=== PATIENT | male | born 1960 | race African-American/Black ===

== ENCOUNTER 2018-12-10 17:39 | Emergency (ER) | payer OTHER, MEDICAID ==
[~2018-12-10] VITALS: Ht 180.3 cm; Wt 90.0 kg
[2018-12-10] MEDS ORDERED: VALPROIC ACID 250MG CAPSULE PO ONE (18:30)
[2018-12-10] MEDS ORDERED: PHENYTOIN SODIUM EXTENDED 100MG CAPSULE PO ONE (18:30)
[2018-12-10 22:28] VITALS: BP 127/62
== END 2018-12-10 22:30 | disposition home or self-care (01) ==
LOC: ER 17:39
DX: G40.909 Epilepsy, unspecified, not intractable, without status epilepticus (principal); I10 Essential (primary) hypertension
CPT/HCPCS: 36415; 80165; 80185; 99283

== ENCOUNTER 2019-01-24 21:07 | Emergency (ER) | payer OTHER, MEDICAID ==
[~2019-01-24] VITALS: Ht 182.9 cm; Wt 98.0 kg
[2019-01-24] MEDS ORDERED: SODIUM CHLORIDE 0.9% 1,000 ML IV ONE (21:30)
[2019-01-24] MEDS ORDERED: LEVETIRACETAM 500MG PREMIX 100 ML IV ONE (21:30)
[2019-01-24 22:13] LABS: BASOPHILS % 1.3 % (0.0-2.0); EOSINOPHILS % 3.1 % (0.0-5.0); HEMATOCRIT. 43.5 % (42.0-52.0); HEMOGLOBIN. 14.7 g/dL (14.0-18.0); LYMPHOCYTES % 39.9 % (20.0-50.0); MEAN CORPUSCULAR HEMOGLOBIN 31.4 pg (28.0-32.0); MEAN PLATELET VOLUME 9.4 fl (7.4-10.4); MONOCYTES % 14.2 % (2.0-8.0); NEUTROPHILS % 41.5 % (40.0-76.0); PLATELET 135 x1000/uL (130-400); RED BLOOD CELL COUNT 4.68 mill/uL (4.7-6.1); RED CELL DISTRIBUTION WIDTH 14.5 % (11.6-14.6)
[2019-01-24 22:18] LABS: CHLORIDE 110 mEq/L (98-107)
[2019-01-24] MEDS ORDERED: DIVALPROEX SODIUM 250MG ER TABLET PO ONE (23:15)
[2019-01-24 23:55] VITALS: BP 133/72
== END 2019-01-24 23:57 | disposition home or self-care (01) ==
LOC: ER 21:07
DX: G40.802 Other epilepsy, not intractable, without status epilepticus (principal); I10 Essential (primary) hypertension
CPT/HCPCS: 36415; 80053; 80165; 85025; 93005; 96365; 99284; J1953; J7030

== ENCOUNTER 2019-01-29 16:37 | Emergency (ER) | payer OTHER, MEDICAID ==
[~2019-01-29] VITALS: Ht 172.7 cm; Wt 100.0 kg
[2019-01-29] MEDS ORDERED: SODIUM CHLORIDE 0.9% 1,000 ML IV ONE (17:24)
[2019-01-29] MEDS ORDERED: LEVETIRACETAM 1000MG/100ML 100 ML IV ONE (17:30)
[2019-01-29 17:57] LABS: BASOPHILS % 0.5 % (0.0-2.0); EOSINOPHILS % 0.4 % (0.0-5.0); HEMATOCRIT. 44.3 % (42.0-52.0); HEMOGLOBIN. 15.1 g/dL (14.0-18.0); LYMPHOCYTES % 18.4 % (20.0-50.0); MEAN CORPUSCULAR HEMOGLOBIN 31.2 pg (28.0-32.0); MEAN CORPUSCULAR VOLUME 91.5 fL (80.0-94.0); MEAN PLATELET VOLUME 9.1 fl (7.4-10.4); MONOCYTES % 13.2 % (2.0-8.0); NEUTROPHILS % 67.5 % (40.0-76.0); PLATELET 153 x1000/uL (130-400); RED BLOOD CELL COUNT 4.84 mill/uL (4.7-6.1); RED CELL DISTRIBUTION WIDTH 14.6 % (11.6-14.6)
[2019-01-29 18:05] LABS: CHLORIDE 106 mEq/L (98-107)
[2019-01-29 18:09] LABS: ETHANOL BLOOD < 10 mg/dL
[2019-01-29 18:39] LABS: CLARITY URINE CLEAR (CLEAR); COLOR URINE YELLOW (YELLOW); KETONES URINE NEGATIVE (NEGATIVE); LEUKOCYTE ESTERASE URINE NEGATIVE (NEGATIVE); NITRITE URINE NEGATIVE (NEGATIVE); OCCULT BLOOD URINE TRACE (NEGATIVE); PROTEIN URINE 1+ (NEGATIVE); SPECIFIC GRAVITY URINE 1.018 (1.005-1.030)
[2019-01-29 18:51] LABS: *BARBITURATES SCREEN URINE NEGATIVE (NEGATIVE); *BENZODIAZEPINES SCREEN URINE NEGATIVE (NEGATIVE)
[2019-01-29 18:52] LABS: *AMPHETAMINES SCREEN URINE NEGATIVE (NEGATIVE); *COCAINE SCREEN URINE NEGATIVE (NEGATIVE); METHADONE URINE SCREEN NEGATIVE (NEGATIVE); OPIATES URINE SCREEN NEGATIVE (NEGATIVE); PHENCYCLIDINE URINE SCREEN NEGATIVE (NEGATIVE)
[2019-01-29 18:54] LABS: CANNABINOID URINE SCREEN NEGATIVE (NEGATIVE)
[2019-01-29] MEDS ORDERED: PHENYTOIN SODIUM 1,000 MG in SODIUM CHLORIDE 0.9% 100 ML IV ONE (20:30)
[2019-01-29 23:49] VITALS: BP 160/80
== END 2019-01-29 23:50 | disposition short-term general hospital (02) ==
LOC: ER 16:37
DX: R56.9 Unspecified convulsions (principal); I10 Essential (primary) hypertension; E87.8 Other disorders of electrolyte and fluid balance, not elsewhere classified; R41.82 Altered mental status, unspecified
CPT/HCPCS: 36415; 70450; 80053; 80165; 80305; 80320; 81003; 85025; 96365; 96367; 99285; J1165; J1953; J7030; J7050; G0480

== ENCOUNTER 2019-03-18 20:52 | Emergency (ER) | payer OTHER, MEDICAID ==
[~2019-03-18] VITALS: Ht 177.8 cm; Wt 96.0 kg
[2019-03-18] MEDS ORDERED: SODIUM CHLORIDE 0.9% 1,000 ML IV ONE (21:41)
[2019-03-18] MEDS ORDERED: LEVETIRACETAM 500MG PREMIX 100 ML IV ONE (21:45)
[2019-03-18 22:49] LABS: BASOPHILS % 0.6 % (0.0-2.0); EOSINOPHILS % 1.6 % (0.0-5.0); HEMATOCRIT. 46.4 % (42.0-52.0); HEMOGLOBIN. 15.6 g/dL (14.0-18.0); LYMPHOCYTES % 28.8 % (20.0-50.0); MEAN CORPUSCULAR HEMOGLOBIN 31.6 pg (28.0-32.0); MEAN CORPUSCULAR VOLUME 93.8 fL (80.0-94.0); MEAN PLATELET VOLUME 10.1 fl (7.4-10.4); PLATELET 196 x1000/uL (130-400); RED BLOOD CELL COUNT 4.95 mill/uL (4.7-6.1)
[2019-03-18 22:54] LABS: CHLORIDE 107 mEq/L (98-107)
[2019-03-18 22:59] LABS: ETHANOL BLOOD < 10 mg/dL
[2019-03-18 23:03] LABS: CARBAMAZEPINE < 0.5 ug/mL (4-12); CREATINE KINASE 168 IU/L (39-308); PHENOBARBITAL < 2.1 ug/mL (15.0-40.0)
[2019-03-19 01:29] VITALS: BP 131/80
== END 2019-03-19 01:31 | disposition left against medical advice (07) ==
LOC: ER 20:52
DX: R56.9 Unspecified convulsions (principal); E86.0 Dehydration; E11.9 Type 2 diabetes mellitus without complications; I10 Essential (primary) hypertension
CPT/HCPCS: 36415; 80053; 80156; 80165; 80184; 80185; 80320; 82550; 84443; 85025; 96365; 99283; J1953; J7030; G0480

== ENCOUNTER 2019-05-09 10:16 | Emergency (ER) | payer OTHER, MEDICAID ==
[~2019-05-09] VITALS: Ht 188 cm; Wt 110.0 kg
[2019-05-09] MEDS ORDERED: LEVETIRACETAM 1000MG/100ML 100 ML IV ONE (11:00)
[2019-05-09] MEDS ORDERED: LEVETIRACETAM 1000MG/100ML 100 ML IV NR (11:30)
[2019-05-09 12:24] LABS: BASOPHILS % 0.6 % (0.0-2.0); EOSINOPHILS % 0.7 % (0.0-5.0); HEMATOCRIT. 46.3 % (42.0-52.0); HEMOGLOBIN. 15.6 g/dL (14.0-18.0); LYMPHOCYTES % 27.4 % (20.0-50.0); MEAN CORPUSCULAR HEMOGLOBIN 31.2 pg (28.0-32.0); MEAN CORPUSCULAR VOLUME 92.7 fL (80.0-94.0); NEUTROPHILS % 60.3 % (40.0-76.0); PLATELET 173 x1000/uL (130-400); RED CELL DISTRIBUTION WIDTH 14.7 % (11.6-14.6)
[2019-05-09 12:29] LABS: CHLORIDE 104 mEq/L (98-107)
[2019-05-09 12:35] LABS: ETHANOL BLOOD < 10 mg/dL
[2019-05-09 12:42] LABS: INR 1.2
[2019-05-09] MEDS ORDERED: IOHEXOL-350 100 ML BOTTLE ONE (14:34)
[2019-05-09] MEDS ORDERED: ASPIRIN 325MG TABLET PO ONE (15:15)
[2019-05-09 15:59] LABS: CLARITY URINE CLEAR (CLEAR); COLOR URINE YELLOW (YELLOW); KETONES URINE TRACE (NEGATIVE); LEUKOCYTE ESTERASE URINE NEGATIVE (NEGATIVE); NITRITE URINE NEGATIVE (NEGATIVE); OCCULT BLOOD URINE TRACE (NEGATIVE); PH URINE 6.5 (4.5-8.0); PROTEIN URINE 1+ (NEGATIVE); SPECIFIC GRAVITY URINE 1.027 (1.005-1.030); UROBILINOGEN URINE 0.2 E.U./dL (0.2-1.0)
[2019-05-09 16:09] LABS: *AMPHETAMINES SCREEN URINE NEGATIVE (NEGATIVE); *BARBITURATES SCREEN URINE NEGATIVE (NEGATIVE); *BENZODIAZEPINES SCREEN URINE NEGATIVE (NEGATIVE); *COCAINE SCREEN URINE NEGATIVE (NEGATIVE); METHADONE URINE SCREEN NEGATIVE (NEGATIVE); OPIATES URINE SCREEN NEGATIVE (NEGATIVE)
[2019-05-09 16:10] LABS: CANNABINOID URINE SCREEN NEGATIVE (NEGATIVE); PHENCYCLIDINE URINE SCREEN NEGATIVE (NEGATIVE)
[2019-05-09 19:32] VITALS: BP 134/64
== END 2019-05-09 20:28 | disposition short-term general hospital (02) ==
LOC: ER 10:26 → CANBEDREQ 20:37
DX: R41.82 Altered mental status, unspecified (principal)
CPT/HCPCS: 36415; 70450; 71045; 80053; 80305; 80320; 81003; 82962; 83690; 84484; 85025; 85610; 93005; 96365; 99285; J1953; Q9967; G0480

== ENCOUNTER 2019-06-10 22:00 | Emergency (ER) | payer OTHER, MEDICAID ==
[~2019-06-10] VITALS: Ht 182.9 cm; Wt 96.0 kg
[2019-06-10 22:48] VITALS: BP 142/85
[2019-06-10] MEDS ORDERED: SODIUM CHLORIDE 0.9% 1,000 ML IV ONE (22:55)
[2019-06-10 23:26] LABS: HEMATOCRIT. 46.7 % (42.0-52.0); HEMOGLOBIN. 15.6 g/dL (14.0-18.0); MEAN CORPUSCULAR HEMOGLOBIN 31.1 pg (28.0-32.0); MEAN CORPUSCULAR VOLUME 93.3 fL (80.0-94.0); MEAN PLATELET VOLUME 9.5 fl (7.4-10.4); PLATELET 144 x1000/uL (130-400); RED BLOOD CELL COUNT 5.01 mill/uL (4.7-6.1); RED CELL DISTRIBUTION WIDTH 14.5 % (11.6-14.6)
[2019-06-10 23:38] LABS: CHLORIDE 108 mEq/L (98-107)
[2019-06-11 00:15] LABS: PLATELET ESTIMATE NORMAL
[2019-06-11] MEDS ORDERED: DIVALPROEX SODIUM 250MG ER TABLET PO ONE (01:00)
== END 2019-06-11 01:46 | disposition home or self-care (01) ==
LOC: ER 22:00
DX: R56.9 Unspecified convulsions (principal); R84.2 Abnormal level of other drugs, medicaments and biological substances in specimens from respiratory organs and thorax; E11.9 Type 2 diabetes mellitus without complications; I10 Essential (primary) hypertension
CPT/HCPCS: 36415; 80053; 80165; 80185; 85025; 99283; J7030

== ENCOUNTER 2019-09-09 10:14 | Emergency (ER) | payer OTHER ==
[~2019-09-09] VITALS: Ht 177.8 cm; Wt 104.0 kg
[2019-09-09] MEDS ORDERED: SODIUM CHLORIDE 0.9% 1,000 ML IV ONE (10:26)
[2019-09-09] MEDS ORDERED: LEVETIRACETAM 500MG PREMIX 100 ML IV ONE (10:30)
[2019-09-09 11:59] LABS: BASOPHILS % 0.6 % (0.0-2.0); EOSINOPHILS % 0.9 % (0.0-5.0); HEMATOCRIT. 47.7 % (42.0-52.0); HEMOGLOBIN. 15.9 g/dL (14.0-18.0); LYMPHOCYTES % 28.3 % (20.0-50.0); MEAN CORPUSCULAR HEMOGLOBIN 31.5 pg (28.0-32.0); MEAN CORPUSCULAR VOLUME 94.2 fL (80.0-94.0); MEAN PLATELET VOLUME 9.3 fl (7.4-10.4); MONOCYTES % 10.5 % (2.0-8.0); NEUTROPHILS % 59.7 % (40.0-76.0); PLATELET 131 x1000/uL (130-400); RED BLOOD CELL COUNT 5.06 mill/uL (4.7-6.1); RED CELL DISTRIBUTION WIDTH 14.9 % (11.6-14.6)
[2019-09-09 12:07] LABS: CHLORIDE 105 mEq/L (98-107)
[2019-09-09 12:11] LABS: ETHANOL BLOOD < 10 mg/dL
[2019-09-09 12:40] VITALS: BP 146/86
[2019-09-09 12:51] LABS: CLARITY URINE CLEAR (CLEAR); COLOR URINE YELLOW (YELLOW); KETONES URINE NEGATIVE (NEGATIVE); LEUKOCYTE ESTERASE URINE NEGATIVE (NEGATIVE); NITRITE URINE NEGATIVE (NEGATIVE); OCCULT BLOOD URINE TRACE (NEGATIVE); PROTEIN URINE 1+ (NEGATIVE); UROBILINOGEN URINE 0.2 E.U./dL (0.2-1.0)
[2019-09-09 13:17] LABS: *AMPHETAMINES SCREEN URINE NEGATIVE (NEGATIVE); *BARBITURATES SCREEN URINE NEGATIVE (NEGATIVE); *BENZODIAZEPINES SCREEN URINE NEGATIVE (NEGATIVE); *COCAINE SCREEN URINE NEGATIVE (NEGATIVE); CANNABINOID URINE SCREEN NEGATIVE (NEGATIVE); METHADONE URINE SCREEN NEGATIVE (NEGATIVE); OPIATES URINE SCREEN NEGATIVE (NEGATIVE); PHENCYCLIDINE URINE SCREEN NEGATIVE (NEGATIVE)
== END 2019-09-09 14:41 | disposition home or self-care (01) ==
LOC: ER 10:30
DX: G40.909 Epilepsy, unspecified, not intractable, without status epilepticus (principal); E11.9 Type 2 diabetes mellitus without complications; I10 Essential (primary) hypertension; F99 Mental disorder, not otherwise specified
CPT/HCPCS: 36415; 70450; 80053; 80165; 80185; 80305; 80320; 81003; 85025; 96374; 99284; J1953; J7030; G0480

== ENCOUNTER 2019-10-27 15:48 | Emergency (ER) | payer OTHER, MEDICAID ==
[~2019-10-27] VITALS: Ht 172.7 cm; Wt 100.0 kg
[2019-10-27] MEDS ORDERED: DIVA500T3 PO (15:58)
[2019-10-27] MEDS ORDERED: SODIUM CHLORIDE 0.9% 1,000 ML IV ONE (16:34)
[2019-10-27 16:45] LABS: BASOPHILS % 0.8 % (0.0-2.0); EOSINOPHILS % 1.4 % (0.0-5.0); HEMATOCRIT. 44.8 % (42.0-52.0); HEMOGLOBIN. 15.6 g/dL (14.0-18.0); LYMPHOCYTES % 39.3 % (20.0-50.0); MEAN CORPUSCULAR HEMOGLOBIN 32.3 pg (28.0-32.0); MEAN CORPUSCULAR VOLUME 92.9 fL (80.0-94.0); MEAN PLATELET VOLUME 10.2 fl (7.4-10.4); MONOCYTES % 12.1 % (2.0-8.0); NEUTROPHILS % 46.4 % (40.0-76.0); PLATELET 154 x1000/uL (130-400); RED BLOOD CELL COUNT 4.83 mill/uL (4.7-6.1)
[2019-10-27 16:52] LABS: CHLORIDE 105 mEq/L (98-107)
[2019-10-27 17:02] LABS: INR 1.1; PROTHROMBIN TIME 12.2 sec (9.6-11.0)
[2019-10-27 18:48] LABS: CLARITY URINE CLEAR (CLEAR); COLOR URINE YELLOW (YELLOW); KETONES URINE TRACE (NEGATIVE); LEUKOCYTE ESTERASE URINE NEGATIVE (NEGATIVE); NITRITE URINE NEGATIVE (NEGATIVE); OCCULT BLOOD URINE 2+ (NEGATIVE); PH URINE 6.5 (4.5-8.0); PROTEIN URINE 1+ (NEGATIVE); SPECIFIC GRAVITY URINE 1.021 (1.005-1.030); UROBILINOGEN URINE 0.2 E.U./dL (0.2-1.0)
[2019-10-27 19:30] VITALS: BP 137/77
== END 2019-10-27 20:59 | disposition home or self-care (01) ==
LOC: ER 15:48
DX: R56.9 Unspecified convulsions (principal); E11.9 Type 2 diabetes mellitus without complications; I10 Essential (primary) hypertension
CPT/HCPCS: 36415; 70450; 71045; 80053; 80165; 80185; 81003; 84484; 85025; 85610; 99285; J7030

== ENCOUNTER 2020-02-16 12:53 | Emergency (ER) | payer OTHER, MEDICAID ==
[~2020-02-16] VITALS: Ht 182.9 cm; Wt 81.6 kg
[~2020-02-16 12:53] MED LIST: DIVA500T3 PO
[2020-02-16 13:28] LABS: BASOPHILS % 0.7 % (0.0-2.0); EOSINOPHILS % 1.6 % (0.0-5.0); HEMATOCRIT. 45.5 % (42.0-52.0); HEMOGLOBIN. 15.2 g/dL (14.0-18.0); LYMPHOCYTES % 40.9 % (20.0-50.0); MEAN CORPUSCULAR HEMOGLOBIN 30.8 pg (28.0-32.0); MEAN CORPUSCULAR VOLUME 92.2 fL (80.0-94.0); MEAN PLATELET VOLUME 8.9 fl (7.4-10.4); MONOCYTES % 11.2 % (2.0-8.0); NEUTROPHILS % 45.6 % (40.0-76.0); PLATELET 230 x1000/uL (130-400); RED BLOOD CELL COUNT 4.93 mill/uL (4.7-6.1); RED CELL DISTRIBUTION WIDTH 14.9 % (11.6-14.6)
[2020-02-16 14:51] LABS: CHLORIDE 109 mEq/L (98-107)
[2020-02-16 14:55] LABS: ETHANOL BLOOD < 10 mg/dL
[2020-02-16 15:00] LABS: VALPROIC ACID < 3.0 ug/mL (50-100)
[2020-02-16 16:53] VITALS: BP 136/79
== END 2020-02-16 19:00 | disposition short-term general hospital (02) ==
LOC: ER 12:53
DX: G40.909 Epilepsy, unspecified, not intractable, without status epilepticus (principal); I10 Essential (primary) hypertension; E11.9 Type 2 diabetes mellitus without complications
CPT/HCPCS: 36415; 80053; 80165; 80185; 80320; 82962; 85025; 99284; G0480

== ENCOUNTER 2020-08-26 17:02 | Emergency (ER) | payer OTHER, MEDICAID ==
[~2020-08-26] VITALS: Ht 177.8 cm; Wt 91.0 kg
[2020-08-26] MEDS ORDERED: LORAZEPAM 1MG TABLET PO ONE (17:15)
[2020-08-26 17:45] LABS: EOSINOPHILS % 1.4 % (0.0-5.0); HEMATOCRIT. 43.2 % (42.0-52.0); HEMOGLOBIN. 14.2 g/dL (14.0-18.0); LYMPHOCYTES % 31.6 % (20.0-50.0); MEAN CORPUSCULAR HEMOGLOBIN 30.1 pg (28.0-32.0); MEAN CORPUSCULAR VOLUME 91.3 fL (80.0-94.0); MEAN PLATELET VOLUME 8.4 fl (7.4-10.4); MONOCYTES % 8.3 % (2.0-8.0); NEUTROPHILS % 57.7 % (40.0-76.0); PLATELET 207 x1000/uL (130-400); RED BLOOD CELL COUNT 4.73 mill/uL (4.7-6.1); RED CELL DISTRIBUTION WIDTH 14.9 % (11.6-14.6)
[2020-08-26 17:48] LABS: CHLORIDE 108 mEq/L (98-107)
[2020-08-26 18:01] LABS: ETHANOL BLOOD < 10 mg/dL
[2020-08-26 20:06] LABS: CLARITY URINE CLEAR (CLEAR); COLOR URINE YELLOW (YELLOW); KETONES URINE NEGATIVE (NEGATIVE); LEUKOCYTE ESTERASE URINE NEGATIVE (NEGATIVE); NITRITE URINE NEGATIVE (NEGATIVE); OCCULT BLOOD URINE NEGATIVE (NEGATIVE); PROTEIN URINE NEGATIVE (NEGATIVE); SPECIFIC GRAVITY URINE 1.021 (1.005-1.030)
[2020-08-26 20:15] LABS: *AMPHETAMINES SCREEN URINE NEGATIVE (NEGATIVE); *BARBITURATES SCREEN URINE NEGATIVE (NEGATIVE)
[2020-08-26 20:16] LABS: *BENZODIAZEPINES SCREEN URINE NEGATIVE (NEGATIVE); *COCAINE SCREEN URINE NEGATIVE (NEGATIVE); CANNABINOID URINE SCREEN NEGATIVE (NEGATIVE); OPIATES URINE SCREEN NEGATIVE (NEGATIVE); PHENCYCLIDINE URINE SCREEN NEGATIVE (NEGATIVE)
[2020-08-26 20:22] LABS: METHADONE URINE SCREEN NEGATIVE (NEGATIVE)
[2020-08-26 22:00] VITALS: BP 117/68
== END 2020-08-26 22:25 | disposition home or self-care (01) ==
LOC: ER 17:09
DX: G40.909 Epilepsy, unspecified, not intractable, without status epilepticus (principal); I10 Essential (primary) hypertension; E11.9 Type 2 diabetes mellitus without complications; Z87.891 Personal history of nicotine dependence
CPT/HCPCS: 36415; 80053; 80185; 80305; 80320; 81003; 85025; 93005; 99284; G0480

== ENCOUNTER 2020-09-16 06:50 | Emergency (ER) | payer OTHER, MEDICAID ==
[~2020-09-16] VITALS: Ht 190.5 cm; Wt 121.0 kg
[2020-09-16 08:32] LABS: CHLORIDE 114 mEq/L (98-107)
[2020-09-16 08:37] LABS: ETHANOL BLOOD < 10 mg/dL
[2020-09-16 08:38] LABS: BASOPHILS % 0.5 % (0.0-2.0); EOSINOPHILS % 1.6 % (0.0-5.0); HEMATOCRIT. 40.1 % (42.0-52.0); HEMOGLOBIN. 13.7 g/dL (14.0-18.0); LYMPHOCYTES % 26.4 % (20.0-50.0); MEAN CORPUSCULAR HEMOGLOBIN 31.2 pg (28.0-32.0); MEAN PLATELET VOLUME 8.1 fl (7.4-10.4); MONOCYTES % 11.3 % (2.0-8.0); NEUTROPHILS % 60.2 % (40.0-76.0); PLATELET 195 x1000/uL (130-400)
[2020-09-16 08:50] LABS: VALPROIC ACID < 3.0 ug/mL (50-100)
[2020-09-16 09:12] LABS: CLARITY URINE CLEAR (CLEAR); COLOR URINE YELLOW (YELLOW); KETONES URINE NEGATIVE (NEGATIVE); LEUKOCYTE ESTERASE URINE NEGATIVE (NEGATIVE); NITRITE URINE NEGATIVE (NEGATIVE); OCCULT BLOOD URINE NEGATIVE (NEGATIVE); PH URINE 7.5 (4.5-8.0); PROTEIN URINE NEGATIVE (NEGATIVE); SPECIFIC GRAVITY URINE 1.016 (1.005-1.030); UROBILINOGEN URINE 0.2 E.U./dL (0.2-1.0)
[2020-09-16 09:34] LABS: *AMPHETAMINES SCREEN URINE NEGATIVE (NEGATIVE); *BARBITURATES SCREEN URINE NEGATIVE (NEGATIVE); *BENZODIAZEPINES SCREEN URINE NEGATIVE (NEGATIVE); *COCAINE SCREEN URINE NEGATIVE (NEGATIVE)
[2020-09-16 09:35] LABS: CANNABINOID URINE SCREEN NEGATIVE (NEGATIVE); METHADONE URINE SCREEN NEGATIVE (NEGATIVE); OPIATES URINE SCREEN NEGATIVE (NEGATIVE); PHENCYCLIDINE URINE SCREEN NEGATIVE (NEGATIVE)
[2020-09-16] MEDS ORDERED: PHENYTOIN SODIUM 1,000 MG in SODIUM CHLORIDE 0.9% 100 ML IV ONE (11:00)
[2020-09-16 13:08] VITALS: BP 127/79
== END 2020-09-16 14:29 | disposition short-term general hospital (02) ==
LOC: ER 06:50 → CANBEDREQ 13:27 → ER 14:29
DX: G40.909 Epilepsy, unspecified, not intractable, without status epilepticus (principal); E11.9 Type 2 diabetes mellitus without complications; I10 Essential (primary) hypertension
CPT/HCPCS: 36415; 70450; 71045; 80053; 80165; 80305; 80320; 81003; 85025; 93005; 96365; 99285; J1165; J7050; G0480

== ENCOUNTER 2020-09-17 05:07 | Emergency (ER) | payer OTHER, MEDICAID ==
[~2020-09-17] VITALS: Ht 172.7 cm; Wt 100.0 kg
[2020-09-17 06:18] LABS: BASOPHILS % 0.4 % (0.0-2.0); EOSINOPHILS % 1.5 % (0.0-5.0); HEMATOCRIT. 43.8 % (42.0-52.0); HEMOGLOBIN. 14.6 g/dL (14.0-18.0); LYMPHOCYTES % 19.4 % (20.0-50.0); MEAN CORPUSCULAR HEMOGLOBIN 30.3 pg (28.0-32.0); MEAN CORPUSCULAR VOLUME 91.1 fL (80.0-94.0); MEAN PLATELET VOLUME 8.4 fl (7.4-10.4); MONOCYTES % 9.1 % (2.0-8.0); NEUTROPHILS % 69.6 % (40.0-76.0); PLATELET 208 x1000/uL (130-400); RED BLOOD CELL COUNT 4.81 mill/uL (4.7-6.1); RED CELL DISTRIBUTION WIDTH 15.3 % (11.6-14.6)
[2020-09-17 06:24] LABS: CHLORIDE 108 mEq/L (98-107)
[2020-09-17 08:46] VITALS: BP 123/57
== END 2020-09-17 10:35 | disposition home or self-care (01) ==
LOC: ER 05:07
DX: G40.909 Epilepsy, unspecified, not intractable, without status epilepticus (principal); T42.0X5A Adverse effect of hydantoin derivatives, initial encounter; I10 Essential (primary) hypertension; Y92.9 Unspecified place or not applicable
CPT/HCPCS: 36415; 80053; 80185; 82962; 85025; 99283